=== PATIENT | male | born 1970 | race Caucasian/White ===

== ENCOUNTER → 2016-10-16 | Outpatient (CLI) | payer BC ==
[~2016-10-16] VITALS: Ht 175.3 cm; Wt 65.5 kg
[~2016-10-16] MED LIST: ASPIRIN 81M81 MG/TA2 PO; SYNTHROID0.125 MG/T PO; ZOCOR 40MG40 MG PO
[2016-10-16 07:45] VITALS: BP 121/71; PULSE 97
[2016-10-16 08:54] VITALS: BP 116/77; PULSE 82
== END ==
LOC: COL.RAD 07:25
DX: D44.0 Neoplasm of uncertain behavior of thyroid gland (principal)

== ENCOUNTER → 2016-11-07 | Outpatient (REF) ==
[2016-11-07 16:51] LABS: ALBUMIN 3.8 gm/dL (3.5-5.0); CALCIUM 9.2 mg/dL (8.4-10.2)
== END ==
LOC: ZMSC 16:24
PROVIDERS: Otolaryngology
DX: Z01.89 Encounter for other specified special examinations (principal)

== ENCOUNTER → 2016-11-07 | Outpatient (REF) ==
[2016-11-07 12:54] LABS: ALBUMIN 3.1 gm/dL (3.5-5.0); CALCIUM 8.9 mg/dL (8.4-10.2); PHOSPHOROUS 3.4 mg/dL (2.5-4.5)
[2016-11-09 11:07] LABS: THYROGLOBULIN AB SCREEN <1.8 IU/mL (<4.0); THYROGLOBULIN TUMOR MARKER 247 ng/mL (())
== END ==
LOC: ZMSC 10:40
PROVIDERS: Otolaryngology
DX: Z01.89 Encounter for other specified special examinations (principal)

== ENCOUNTER → 2016-11-08 | Outpatient (REF) ==
[2016-11-08 06:54] LABS: CALCIUM 8.3 mg/dL (8.4-10.2); PHOSPHOROUS 4.2 mg/dL (2.5-4.5)
== END ==
LOC: ZMSC 06:38
PROVIDERS: Otolaryngology
DX: Z01.89 Encounter for other specified special examinations (principal)

== ENCOUNTER 2017-01-16 13:30 | Outpatient (RCR) | payer BC ==
[2017-01-15 14:30] VITALS: BP 114/78; PULSE 100; TEMP 98
[~2017-01-16] VITALS: Ht 175.3 cm; Wt 70.0 kg
[2017-01-16 13:51] VITALS: BP 103/65; PULSE 97; TEMP 97.7
== END 2017-04-15 ==
LOC: EUO
DX: C73 Malignant neoplasm of thyroid gland (principal)
CPT/HCPCS: A9517; J3240

== ENCOUNTER → 2017-01-29 | Outpatient (CLI) | payer BC ==
[2017-01-31 12:13] LABS: THYROGLOBULIN AB SCREEN <1.8 IU/mL (<4.0); THYROGLOBULIN TUMOR MARKER 0.9 ng/mL (())
== END ==
LOC: COL.LAB 08:42
PROVIDERS: Otolaryngology
DX: C73 Malignant neoplasm of thyroid gland (principal)

== ENCOUNTER → 2017-08-11 | Outpatient (CLI) | payer BC | LOC: COL.LAB 08:35 | DX: C73 Malignant neoplasm of thyroid gland (principal) ==

== ENCOUNTER 2017-08-18 08:07 | Outpatient (RCR) | payer BC | END 2017-11-16 | disposition home or self-care (01) | LOC: WSST | DX: R13.12 Dysphagia, oropharyngeal phase (principal) ==

== ENCOUNTER → 2017-08-22 | Outpatient (CLI) | payer BC | LOC: COL.RAD 08-21 15:30 | DX: C76.0 Malignant neoplasm of head, face and neck (principal); R13.12 Dysphagia, oropharyngeal phase | CPT/HCPCS: G8996-GN; G8997-GN; G8998-GN ==